=== PATIENT | male | born 1985 | race Caucasian/White ===

== ENCOUNTER 2018-12-25 04:46 | Day surgery (SDC) | payer OTHER | END 2018-12-25 12:30 | disposition home or self-care (01) | LOC: JASU-SURG 04:46 ==

== ENCOUNTER 2020-03-15 14:59 | Emergency (ER) | payer OTHER ==
[2020-03-15 15:04] VITALS: TEMP 98.3; BMI 36.5
--- NOTE | 2020-03-15 15:07 | PDOC ---
Rapid Medical Evaluation Chief Complaint: Pain, Acute Time Seen by Provider: 03/15/20 15:04 Medical Evaluation: Allergies Allergy/AdvReac Type Severity Reaction Status Date / Time No Known Allergies Allergy Verified 03/15/20 15:02 Vital Signs Temp Pulse Resp BP Pulse Ox 98.3 F 120 H 20 145/97 100 03/15/20 15:02 03/15/20 15:02 03/15/20 15:02 03/15/20 15:02 03/15/20 15:02 03/15/20 15:06 CC: rt flank, ruq pain x 3 days, no other complaints Exam: rt cva and ruq tenderness, tachy at 120, (states he just walked up the hill) Plan: labs, urine Discharge Disposition - Diagnosis Abdominal pain - Referrals - Patient Instructions - Post Discharge Activity
[2020-03-15] MEDS ORDERED: ONDANSETRON 4 MG/2 ML VIAL IVPUSH ONE (15:19)
[2020-03-15] MEDS ORDERED: KETOROLAC TROMETHAMINE 30 MG/1 ML VIAL IVPUSH ONE (15:19)
--- NOTE | 2020-03-15 15:28 | PDOC ---
History of Present Illness - General Chief Complaint: Pain, Acute Stated Complaint: BACK PAIN Time Seen by Provider: 03/15/20 15:04 History Source: Patient - History of Present Illness Timing/Duration: reports: constant Quality: reports: severe Abdominal Pain Onset Location: reports: RUQ, flank Past History - Medical History Allergies/Adverse Reactions: Allergies Allergy/AdvReac Type Severity Reaction Status Date / Time No Known Allergies Allergy Verified 03/15/20 15:02 Home Medications: Ambulatory Orders Hydrocodone/Acetaminophen [Hydrocodone-Acetamin 5-325 mg] 1 each PO Q6H #20 tablet MDD 4 12/25/18 Anemia: No Asthma: No Cancer: No Cardiac Disorders: No CVA: No COPD: No CHF: No Dementia: No Diabetes: No GI Disorders: No Disorders: No HTN: No Hypercholesterolemia: No Liver Disease: No Seizures: No Thyroid Disease: No Other medical history: DENIES - Immunization History Immunization Up to Date: Yes - Psycho-Social/Smoking History Smoking History: Never smoked - Substance Abuse Hx (Audit-C & DAST Scrn) How often the patient has a drink containing alcohol: Never Score: In Men: 4 or > Positive; In Women: 3 or > Positive: 0 Screen Result (Pos requires Nsg. Audit-10AR): Negative In the last yr the pt used illegal drug/Rx for NonMed reason: No Score: Yes response is considered Positive: 0 Screen Result (Positive result requires Nsg. DAST-10): Negative Review of Systems - Review of Systems Constitutional: No: Chills, Fever Respiratory: No: Cough, Shortness of Breath Cardiac (ROS): No: Chest Pain ABD/GI: Yes: Nausea. No: Blood Streaked Bowels, Constipated, Diarrhea, Rectal Bleeding, Vomiting, Tarry Stools : Yes: Flank Pain. No: Dysuria, Hematuria *Physical Exam - Vital Signs Last Vital Signs Temp Pulse Resp BP Pulse Ox 98.3 F 120 H 20 145/97 100 03/15/20 15:02 03/15/20 15:02 03/15/20 15:02 03/15/20 15:02 03/15/20 15:02 - Physical Exam General Appearance: Yes: Appropriately Dressed, Mild Distress HEENT: positive: Normal Voice Respiratory/Chest: positive: Lungs Clear, Normal Breath Sounds. negative: Respiratory Distress Cardiovascular: positive: Regular Rate, S1, S2 Gastrointestinal/Abdominal: positive: Normal Bowel Sounds, Tender (minimal ttp to RUQ, neg murpheys), Soft. negative: Distended, Guarding, Rebound Musculoskeletal: positive: CVA Tenderness (R) Integumentary: positive: Dry, Warm Neurologic: positive: Fully Oriented, Alert, Normal Mood/Affect ED Treatment Course - LABORATORY CBC & Chemistry Diagram: 03/15/20 16:00 03/15/20 16:00 - RADIOLOGY Radiology Studies Ordered: Category Date Time Status CXR [CHEST PA & LAT] [RAD] Stat Radiology 03/15/20 15:18 Ordered ABDOMEN US -LIMITED [US] Stat Ultrasound 03/15/20 15:18 Ordered KIDNEY / RENAL US [US] Stat Ultrasound 03/15/20 15:19 Ordered Medical Decision Making - Medical Decision Making 03/15/20 15:23 34 yo morbidly obesed male who denies any past medical history, here with persistent R upper/flank pain since yesterday, unable to describe, constant, 8 out of 10 and a/w nausea. No vomiting, dysuria, hematuria, fever, chills or change in bowel movements. Denies any cough, shortness of breath, chest pain or palpitations. No history of similar episode. No recent trauma. No personal history of gallstones or kidney stones but states his father might have had kidney stones. see exam R flank pain ? renal colic vs biliary, less likely pancreatitis, cardiac or pulm source Exam remarkable for HR 120 w/ R CVAT and ttp to RUQ -symptomatic control -labs -renal and RUQ sono -?CT 03/15/20 18:05 Labs unremarkable. Renal US normal. US neg for possible GB polyp, less likely stone, w/ no e/o demetrius but does show slightly dilated CBD to 0.7 cm. MRI/MRCP if clinically warranted. On reassessment, patient continues to complain of pain to his right upper back/flank but does not appear to be in any significant distress. Case discussed with Dr. Xavier who reviewed labs and images. Plan is to do non-contrast CT to definitively rule out stone. 03/15/20 19:02 Pt signed out to GARRICK Xavier pending CT read and rpt vitals Discharge - Discharge Information Problems reviewed: Yes Clinical Impression/Diagnosis: Right flank pain Cholelithiasis Qualifiers: Cholelithiasis location: gallbladder Cholecystitis presence: without cholecystitis Biliary obstruction: without biliary obstruction Qualified Code(s): K80.20 - Calculus of gallbladder without cholecystitis without obstruction Disposition: HOME - Follow up/Referral Referrals: Ramakrishna Catherine DO [Staff Physician] - Call tomorrow Usha Mccauley MD [Primary Care Provider] - - Patient Discharge Instructions Patient Printed Discharge Instructions: DI for Gallstones Additional Instructions: You may take Tylenol or ibuprofen for pain. It is important to cut fatty foods from your diet. Maintain a high-fiber diet drink lots of fluids. Follow-up with admitting coordinator as soon as possible. Return to the emergency room for any worsening symptoms including vomiting, fever, worsening abdominal pain - Post Discharge Activity Work/Back to School Note: Back to Work
[2020-03-15 16:05] LABS: BASO % 1.3 % (0-2.0); EOS % 3.1 % (0-4.5); HEMATOCRIT 46.2 % (35.4-49); LYMPH % 28.5 % (8-40); MCH 25.4 pg (25.7-33.7); MCHC 32.4 g/dl (32.0-35.9); MEAN CELL VOLUME 78.5 fl (80-96); MEAN PLT VOLUME 8.4 fl (7.5-11.1); MONO % 6.3 % (3.8-10.2); NEUT % 60.8 % (42.8-82.8); PLATELET COUNT 296 K/MM3 (134-434); RBC 5.88 M/mm3 (4.00-5.60); RDW 14.5 % (11.9-15.9); WHITE BLOOD COUNT 9.7 K/mm3 (4.0-10.0)
[2020-03-15] MEDS ORDERED: KETOROLAC TROMETHAMINE 30 MG/1 ML VIAL ONE (16:17)
[2020-03-15 16:36] LABS: ALBUMIN 4.1 g/dl (3.4-5.0); BILIRUBIN,TOTAL 0.4 mg/dL (0.2-1); BLOOD UREA NITROGEN 13.9 mg/dL (7-18); CALCIUM 9.7 mg/dL (8.5-10.1); CREATININE 0.9 mg/dL (0.55-1.3); POTASSIUM 4.2 mmol/L (3.5-5.1); TOT PROT 7.7 g/dl (6.4-8.2)
[2020-03-15 17:13] LABS: URINE APPEARANCE CLEAR; URINE BILIRUBIN NEGATIVE (NEGATIVE); URINE COLOR YELLOW; URINE GLUCOSE (UA) NEGATIVE (NEGATIVE); URINE KETONE TRACE (NEGATIVE); URINE LEUK ESTERASE NEGATIVE (NEGATIVE); URINE NITRITE NEGATIVE (NEGATIVE); URINE PROTEIN TRACE (NEGATIVE); URINE UROBILINOGEN 0.2 mg/dL (0.2-1.0)
[2020-03-15] MEDS ORDERED: ACETAMINOPHEN 1000 MG/100 ML VIAL (NON FORMULARY) IVPB ONE (18:21)
[2020-03-15] MEDS ORDERED: ACETAMINOPHEN INJECTION 100 ML IVPB ONE (18:49)
--- NOTE | 2020-03-15 19:28 | PDOC ---
*Physical Exam - Vital Signs Last Vital Signs Temp Pulse Resp BP Pulse Ox 98.3 F 120 H 20 145/97 100 03/15/20 15:02 03/15/20 15:02 03/15/20 15:02 03/15/20 15:02 03/15/20 15:02 - Physical Exam General Appearance: Yes: Appropriately Dressed Respiratory/Chest: positive: Lungs Clear, Normal Breath Sounds Gastrointestinal/Abdominal: positive: Normal Bowel Sounds, Soft. negative: Tender Musculoskeletal: positive: Normal Inspection. negative: CVA Tenderness (R) Extremity: positive: Normal Capillary Refill, Normal Inspection Integumentary: positive: Normal Color, Dry, Warm Neurologic: positive: Fully Oriented, Alert, Normal Mood/Affect ED Treatment Course - LABORATORY CBC & Chemistry Diagram: 03/15/20 16:00 03/15/20 16:00 - ADDITIONAL ORDERS Additional order review: Laboratory Results 03/15/20 03/15/20 16:56 16:00 Sodium 140 Potassium 4.2 Chloride 107 Carbon Dioxide 28 Anion Gap 5 L BUN 13.9 Creatinine 0.9 Est GFR (CKD-EPI)AfAm 126.90 Est GFR (CKD-EPI)NonAf 109.49 Random Glucose 84 Calcium 9.7 Total Bilirubin 0.4 AST 16 ALT 34 Alkaline Phosphatase 88 Total Protein 7.7 Albumin 4.1 Lipase 80 Urine Color Yellow Urine Appearance Clear Urine pH 5.0 Ur Specific Morgan 1.031 Urine Protein Trace Urine Glucose (UA) Negative Urine Ketones Trace H Urine Blood Negative Urine Nitrite Negative Urine Bilirubin Negative Urine Urobilinogen 0.2 Ur Leukocyte Esterase Negative 03/15/20 16:00 RBC 5.88 H MCV 78.5 L MCHC 32.4 RDW 14.5 MPV 8.4 Neutrophils % 60.8 Lymphocytes % 28.5 Monocytes % 6.3 Eosinophils % 3.1 Basophils % 1.3 - Medications Given in the ED: ED Medications Discontinued Medications Generic Name Dose Route Start Last Admin Trade Name Freq PRN Reason Stop Dose Admin Acetaminophen 1,000 mg 03/15/20 18:21 03/15/20 18:56 Ofirmev Injection - IVPB 03/15/20 18:22 1,000 mg ONCE ONE Administration Ketorolac Tromethamine 30 mg 03/15/20 15:19 03/15/20 16:34 Toradol Injection - IVPUSH 03/15/20 15:20 30 mg ONCE ONE Administration Ondansetron HCl 4 mg 03/15/20 15:19 03/15/20 16:34 Zofran Injection IVPUSH 03/15/20 15:20 4 mg ONCE ONE Administration Medical Decision Making - Medical Decision Making Cholethiases P: CT cholethiases Discharge - Discharge Information Problems reviewed: Yes Clinical Impression/Diagnosis: Right flank pain Cholelithiasis Qualifiers: Cholelithiasis location: gallbladder Cholecystitis presence: without cholecystitis Biliary obstruction: without biliary obstruction Qualified Code(s): K80.20 - Calculus of gallbladder without cholecystitis without obstruction Disposition: HOME - Follow up/Referral Referrals: Usha Mccauley MD [Primary Care Provider] - Ramakrishna Catherine DO [Staff Physician] - Call tomorrow - Patient Discharge Instructions Patient Printed Discharge Instructions: DI for Gallstones Additional Instructions: You may take Tylenol or ibuprofen for pain. It is important to cut fatty foods from your diet. Maintain a high-fiber diet drink lots of fluids. Follow-up with employer relations representative as soon as possible. Return to the emergency room for any worsening symptoms including vomiting, fever, worsening abdominal pain - Post Discharge Activity Work/Back to School Note: Back to Work
[2020-03-15 20:07] VITALS: BP 127/85; PULSE 89
== END 2020-03-15 21:07 | disposition home or self-care (01) ==
LOC: JER 14:59
PROC: 3E0333Z Introduction of Anti-inflammatory into Peripheral Vein, Percutaneous Approach (ICD-10-PCS; principal; 2020-03-15)
PROC: 3E033GC Introduction of Other Therapeutic Substance into Peripheral Vein, Percutaneous Approach (ICD-10-PCS; 2020-03-15)
DX: R10.9 Unspecified abdominal pain (principal); K80.20 Calculus of gallbladder without cholecystitis without obstruction
CPT/HCPCS: 36415; 71046-TC-FY; 74176-TC; 76705-TC; 76775-TC; 80053; 81003; 83690; 85025; 87086; 99285-25; J0131

== ENCOUNTER 2021-03-07 12:32 | Observation (INO) | payer OTHER ==
[2021-03-07 13:02] VITALS: BMI 38.0
[2021-03-07] MEDS ORDERED: ONDANSETRON 4 MG/2 ML VIAL IVPUSH ONE (13:15)
[2021-03-07 13:23] LABS: HEMATOCRIT 42.1 % (35.4-49); HEMOGLOBIN 13.6 GM/dL (11.7-16.9); MCH 24.7 pg (25.7-33.7); MCHC 32.3 g/dl (32.0-35.9); MEAN CELL VOLUME 76.5 fl (80-96); MEAN PLT VOLUME 7.9 fl (7.5-11.1); PLATELET COUNT 275 10^3/uL (134-434); RDW 14.9 % (11.9-15.9); WHITE BLOOD COUNT 11.8 K/mm3 (4.0-10.0)
[2021-03-07 13:47] LABS: CHLORIDE 106 mmol/L (98-107); SODIUM 137 mmol/L (136-145)
[2021-03-07 13:50] LABS: ALBUMIN 3.5 g/dl (3.4-5.0); CO2 24 mmol/L (21-32); GLUCOSE,RANDOM 107 mg/dL (74-106)
[2021-03-07 13:51] LABS: BLOOD UREA NITROGEN 13.1 mg/dL (7-18)
[2021-03-07 13:53] LABS: CREATININE 0.8 mg/dL (0.55-1.3); SGOT/AST 47 U/L (15-37); SGPT/ALT 40 U/L (13-61)
[2021-03-07 13:55] LABS: BILIRUBIN,TOTAL 0.4 mg/dL (0.2-1); TOT PROT 7.3 g/dl (6.4-8.2)
[2021-03-07 13:56] LABS: ALK PHOS 79 U/L (45-117)
[2021-03-07] MEDS ORDERED: ONDANSETRON 4 MG/2 ML VIAL ONE (13:59)
[2021-03-07 14:12] LABS: INR 0.95 (0.83-1.09); PROTHROMBIN TIME (PATIENT) 11.7 SEC (9.7-13.0)
[2021-03-07] MEDS ORDERED: ACETAMINOPHEN 1000 MG/100 ML VIAL (NON FORMULARY) IVPB ONE (14:31)
[2021-03-07] MEDS ORDERED: ACETAMINOPHEN INJECTION 100 ML IVPB ONE (14:43)
[2021-03-07 15:18] LABS: N-TERMINAL BNP 235.3 pg/ml (5-125)
[2021-03-07 15:19] LABS: ANION GAP 7 MMOL/L (8-16)
[2021-03-07 16:18] LABS: ALBUMIN 2.9 g/dl (3.4-5.0); BLOOD UREA NITROGEN 10.8 mg/dL (7-18)
[2021-03-07 16:21] LABS: CREATININE 0.6 mg/dL (0.55-1.3)
[2021-03-07 16:23] LABS: BILIRUBIN,TOTAL 0.2 mg/dL (0.2-1); TOT PROT 5.6 g/dl (6.4-8.2)
[2021-03-07 16:27] LABS: CALCIUM 7.1 mg/dL (8.5-10.1)
[2021-03-07] MEDS ORDERED: ASPIRIN 81 MG CHEWABLE TABLETS PO ONE (17:32)
[2021-03-07] MEDS ORDERED: POTASSIUM CHLORIDE TABS 20 MEQ TABLET.ER (FP) PO ONE ×2 (17:49→18:12)
[2021-03-07] MEDS ORDERED: ASPIRIN 81 MG CHEWABLE TABLETS ONE ×2 (18:12→18:14)
[2021-03-07] MEDS ORDERED: ACETAMINOPHEN 325 MG TABLET (FP) PO PRN (22:25)
[2021-03-08] MEDS ORDERED: ENOXAPARIN NA (PORCINE) 40 MG/0.4 ML DISP.SYRIN SQ ONE (03:22)
[2021-03-08] MEDS: ENOXAPARIN NA (PORCINE) 40 MG/0.4 ML DISP.SYRIN SQ SCH ×3 (03:25→10:01)
[2021-03-08 07:40] LABS: BASO % 0.9 % (0-2.0); EOS % 2.9 % (0-4.5); HEMATOCRIT 43.8 % (35.4-49); HEMOGLOBIN 14.2 GM/dL (11.7-16.9); LYMPH % 16.8 % (8-40); MCH 25.2 pg (25.7-33.7); MCHC 32.5 g/dl (32.0-35.9); MEAN CELL VOLUME 77.5 fl (80-96); MEAN PLT VOLUME 8.8 fl (7.5-11.1); MONO % 4.9 % (3.8-10.2); NEUT % 74.5 % (42.8-82.8); PLATELET COUNT 288 10^3/uL (134-434); RBC 5.65 M/mm3 (4.00-5.60); RDW 14.7 % (11.9-15.9); WHITE BLOOD COUNT 11.8 K/mm3 (4.0-10.0)
[2021-03-08 08:06] LABS: CHLORIDE 106 mmol/L (98-107); SODIUM 138 mmol/L (136-145)
[2021-03-08 08:11] LABS: ANION GAP 7 MMOL/L (8-16); BLOOD UREA NITROGEN 14.8 mg/dL (7-18); CO2 25 mmol/L (21-32); GLUCOSE,RANDOM 93 mg/dL (74-106); MAGNESIUM 2.2 mg/dL (1.8-2.4)
[2021-03-08 08:14] LABS: CREATININE 0.9 mg/dL (0.55-1.3)
[2021-03-08 08:34] LABS: CALCIUM 8.5 mg/dL (8.5-10.1)
[2021-03-08] MEDS: CARVEDILOL 3.125 MG TABLET (FP) PO SCH ×2 (10:01→21:16)
[2021-03-08] MEDS: ASPIRIN 81 MG CHEWABLE TABLETS PO SCH (10:01)
[2021-03-08 14:00] LABS: CHOLESTEROL 188 mg/dL (50-200); TRIGLYCERIDES 126 mg/dL (0-150)
[2021-03-08 14:01] LABS: LDL CHOLESTEROL (ONLY SJRH) 117 mg/dL (5-100)
[2021-03-08 14:03] LABS: HDL CHOLESTEROL 38 mg/dL (40-60)
[2021-03-08] MEDS ORDERED: POLYETHYLENE GLYCOL (HEALTHYLAX) 3350 17 GM PACKET PO PRN (19:21)
[2021-03-09 07:25] LABS: CHOLESTEROL 189 mg/dL (50-200); TRIGLYCERIDES 98 mg/dL (0-150)
[2021-03-09 07:26] LABS: LDL CHOLESTEROL (ONLY SJRH) 127 mg/dL (5-100)
[2021-03-09 07:29] LABS: HDL CHOLESTEROL 37 mg/dL (40-60)
[2021-03-09] MEDS: ASPIRIN 81 MG CHEWABLE TABLETS PO SCH (09:24)
[2021-03-09] MEDS: CARVEDILOL 3.125 MG TABLET (FP) PO SCH (09:24)
[2021-03-09] MEDS: ENOXAPARIN NA (PORCINE) 40 MG/0.4 ML DISP.SYRIN SQ SCH (09:25)
[2021-03-09 11:28] LABS: BASO % 0.7 % (0-2.0); EOS % 3.9 % (0-4.5); HEMATOCRIT 45.1 % (35.4-49); HEMOGLOBIN 14.8 GM/dL (11.7-16.9); LYMPH % 23.2 % (8-40); MCH 25.4 pg (25.7-33.7); MCHC 32.7 g/dl (32.0-35.9); MEAN CELL VOLUME 77.5 fl (80-96); MEAN PLT VOLUME 9.5 fl (7.5-11.1); NEUT % 66.2 % (42.8-82.8); PLATELET COUNT 293 10^3/uL (134-434); RBC 5.82 M/mm3 (4.00-5.60); RDW 14.7 % (11.9-15.9); WHITE BLOOD COUNT 9.2 K/mm3 (4.0-10.0)
[2021-03-09] MEDS ORDERED: CARVEDILOL 3.125 MG TABLET (FP) PO ONE (13:30)
[2021-03-09] MEDS ORDERED: ROSUVASTATIN CA 10 MG TABLET (FP) PO SCH (22:00)
[2021-03-09] MEDS: SACUBITRIL/VALSARTAN 24 MG-26 MG TABLET PO SCH (22:18)
[2021-03-09] MEDS: CARVEDILOL 6.25 MG TABLET (FP) PO SCH (22:18)
[2021-03-10] MEDS: CARVEDILOL 6.25 MG TABLET (FP) PO SCH (09:23)
[2021-03-10] MEDS: ASPIRIN 81 MG CHEWABLE TABLETS PO SCH (09:23)
[2021-03-10] MEDS ORDERED: CARVEDILOL 12.5 MG TABLET (FP) PO SCH (09:30)
[2021-03-10] MEDS: SACUBITRIL/VALSARTAN 24 MG-26 MG TABLET PO SCH (09:38)
[2021-03-10] MEDS: ENOXAPARIN NA (PORCINE) 40 MG/0.4 ML DISP.SYRIN SQ SCH (09:40)
[2021-03-10 12:51] VITALS: BP 135/98; PULSE 107; TEMP 98.4
== END 2021-03-10 12:55 | disposition home or self-care (01) ==
LOC: JER 12:32 → JERBED 20:13 → UNDOADMOB 20:13 → INTOOBSV 20:13 → OBSVTOIN 20:13 → JERBED 03-08 04:08 → J4W 03-08 04:08 → JERBED 03-08 08:35
PROVIDERS: ADMIT Internal Medicine; ATTEND Internal Medicine
DX: I11.9 Hypertensive heart disease without heart failure (principal); I43 Cardiomyopathy in diseases classified elsewhere; I44.7 Left bundle-branch block, unspecified; R06.02 Shortness of breath; E66.9 Obesity, unspecified; Z68.38 Body mass index [BMI] 38.0-38.9, adult; R07.89 Other chest pain; R07.9 Chest pain, unspecified
CPT/HCPCS: 36415; 71045-TC-FY; 71275-TC; 80048; 80053; 80061; 82550; 82553; 83735; 83880; 84443; 84484; 85025; 85027; 85379; 85610; 85730; 93005; 93010; 93306-TC; 93970-TC; 99285-25; C9803; G0378; J0131; Q9967; U0003; U0005

== ENCOUNTER 2021-07-13 11:49 | Emergency (ER) | payer OTHER ==
[2021-07-13 12:24] VITALS: BP 119/78; PULSE 111; TEMP 98.4; BMI 45.6
[2021-07-15 02:06] LABS: SARS-CoV-2 NAA Detected (Not Detected)
== END 2021-07-13 13:40 | disposition home or self-care (01) ==
LOC: JER 11:49
DX: R51.9 Headache, unspecified (principal); J06.9 Acute upper respiratory infection, unspecified; M79.10 Myalgia, unspecified site
CPT/HCPCS: 87070; 87804; 99283-25; C9803-CS; U0003; U0005

== ENCOUNTER 2021-07-17 13:10 | Emergency (ER) | payer OTHER ==
[2021-07-17 13:30] VITALS: TEMP 97.8; BMI 44.6
[2021-07-17] MEDS ORDERED: CASIRIVIMAB/IMDEVIMAB 10 ML in SODIUM CHLORIDE 100 ML IVPB ONE (14:03)
[2021-07-17 16:34] VITALS: BP 112/71; PULSE 83
== END 2021-07-17 18:18 | disposition home or self-care (01) ==
LOC: JER 13:10 → JCOVINFU 13:10
PROC: 3E033GC Introduction of Other Therapeutic Substance into Peripheral Vein, Percutaneous Approach (ICD-10-PCS; principal; 2021-07-17)
DX: U07.1 COVID-19 (principal)
CPT/HCPCS: 99284-25; Q0240

== ENCOUNTER 2021-08-09 12:37 | Emergency (ER) | payer OTHER ==
[2021-08-09 13:08] VITALS: BMI 44.8
[2021-08-09] MEDS ORDERED: ACETAMINOPHEN 1000 MG/100 ML BAG IVPB ONE (13:48)
[2021-08-09] MEDS ORDERED: ACETAMINOPHEN 500 MG TABLET (FP) PO ONE (14:43)
[2021-08-09] MEDS ORDERED: ACETAMINOPHEN 500 MG TABLET (FP) ONE (14:48)
[2021-08-09 15:10] LABS: BASO % 0.6 % (0-2.0); EOS % 0.2 % (0-4.5); HEMATOCRIT 44.4 % (35.4-49); HEMOGLOBIN 14.6 GM/dL (11.7-16.9); LYMPH % 23.4 % (8-40); MCH 25.1 pg (25.7-33.7); MCHC 32.9 g/dl (32.0-35.9); MEAN CELL VOLUME 76.2 fl (80-96); MEAN PLT VOLUME 8.6 fl (7.5-11.1); MONO % 11.3 % (3.8-10.2); NEUT % 64.5 % (42.8-82.8); PLATELET COUNT 158 10^3/uL (134-434); RBC 5.82 M/mm3 (4.00-5.60); WHITE BLOOD COUNT 3.5 K/mm3 (4.0-10.0)
[2021-08-09 15:26] LABS: CHLORIDE 104 mmol/L (98-107); SODIUM 137 mmol/L (136-145)
[2021-08-09 15:28] LABS: ALBUMIN 3.5 g/dl (3.4-5.0); ANION GAP 8 MMOL/L (8-16); BLOOD UREA NITROGEN 14.9 mg/dL (7-18); CALCIUM 9.1 mg/dL (8.5-10.1); CO2 25 mmol/L (21-32); GLUCOSE,RANDOM 98 mg/dL (74-106)
[2021-08-09 15:31] LABS: SGPT/ALT 52 U/L (13-61)
[2021-08-09 15:32] LABS: CREATININE 0.9 mg/dL (0.55-1.3); SGOT/AST 30 U/L (15-37)
[2021-08-09 15:33] LABS: BILIRUBIN,TOTAL 0.6 mg/dL (0.2-1)
[2021-08-09 15:34] LABS: ALK PHOS 72 U/L (45-117)
[2021-08-09 16:42] VITALS: BP 108/60; PULSE 63; TEMP 98.1
== END 2021-08-09 16:05 | disposition home or self-care (01) ==
LOC: JER 12:37
PROC: 3E033GC Introduction of Other Therapeutic Substance into Peripheral Vein, Percutaneous Approach (ICD-10-PCS; principal; 2021-08-09)
DX: B34.9 Viral infection, unspecified (principal)
CPT/HCPCS: 36415; 71046-TC-FY; 80053; 84484; 85025; 87804; 93005; 93010; 99285-25; C9803; U0003; U0005

== ENCOUNTER 2021-09-22 13:34 | Observation (INO) | payer OTHER ==
[2021-09-22 13:38] VITALS: BMI 43.5
[2021-09-22] MEDS ORDERED: ASPIRIN 325 MG ENTERIC COATED TABLET (FP) PO ONE (15:05)
[2021-09-22] MEDS ORDERED: ASPIRIN 325 MG TABLET ONE (15:19)
[2021-09-22] MEDS ORDERED: FUROSEMIDE 40 MG/4 ML INJECTABLE VIAL IVPUSH ONE (16:20)
[2021-09-22 16:21] LABS: BASO % 0.8 % (0-2.0); EOS % 4.2 % (0-4.5); HEMATOCRIT 43.3 % (35.4-49); LYMPH % 33.5 % (8-40); MCH 25.2 pg (25.7-33.7); MCHC 32.5 g/dl (32.0-35.9); MEAN CELL VOLUME 77.7 fl (80-96); MONO % 7.4 % (3.8-10.2); NEUT % 54.1 % (42.8-82.8); PLATELET COUNT 274 10^3/uL (134-434); RBC 5.57 M/mm3 (4.00-5.60); RDW 15.7 % (11.9-15.9)
[2021-09-22 16:33] LABS: INR 1.03 (0.83-1.09); PROTHROMBIN TIME (PATIENT) 11.8 SEC (9.7-13.0)
[2021-09-22] MEDS ORDERED: FUROSEMIDE 40 MG/4 ML INJECTABLE VIAL ONE ×2 (16:39→19:31)
[2021-09-22 16:45] LABS: CALCIUM 8.7 mg/dL (8.5-10.1)
[2021-09-22 16:46] LABS: ALBUMIN 3.7 g/dl (3.4-5.0)
[2021-09-22 16:49] LABS: CREATININE 0.8 mg/dL (0.55-1.3)
[2021-09-22 16:51] LABS: BILIRUBIN,TOTAL 0.4 mg/dL (0.2-1)
[2021-09-22 16:54] LABS: N-TERMINAL BNP 40.9 pg/ml (5-125)
[2021-09-22 17:08] LABS: URINE APPEARANCE CLEAR; URINE COLOR YELLOW; URINE GLUCOSE (UA) 500 mg/dl (NEGATIVE)
[2021-09-22 17:09] LABS: URINE BILIRUBIN NEGATIVE (NEGATIVE); URINE KETONE TRACE (NEGATIVE); URINE LEUK ESTERASE NEGATIVE (NEGATIVE); URINE NITRITE NEGATIVE (NEGATIVE); URINE PROTEIN NEGATIVE (NEGATIVE); URINE UROBILINOGEN 0.2 mg/dL (0.2-1.0)
[2021-09-22] MEDS ORDERED: POLYETHYLENE GLYCOL (HEALTHYLAX) 3350 17 GM PACKET PO PRN (19:49)
[2021-09-22] MEDS ORDERED: ACETAMINOPHEN 325 MG TABLET (FP) PO PRN (19:49)
[2021-09-22] MEDS ORDERED: CARVEDILOL 25 MG TABLET (FP) ONE (21:37)
[2021-09-22] MEDS ORDERED: SACUBITRIL/VALSARTAN 24 MG-26 MG TABLET PO SCH (22:00)
[2021-09-22] MEDS ORDERED: ROSUVASTATIN CA 10 MG TABLET PO SCH (22:00)
[2021-09-22] MEDS: CARVEDILOL 25 MG TABLET (FP) PO SCH (22:59)
[2021-09-22] MEDS ORDERED: SACUBITRIL/VALSARTAN 24 MG-26 MG TABLET PO ONE (23:24)
[2021-09-23 07:13] VITALS: TEMP 98
[2021-09-23 08:03] LABS: BASO % 0.6 % (0-2.0); EOS % 4.4 % (0-4.5); HEMATOCRIT 43.7 % (35.4-49); HEMOGLOBIN 14.5 GM/dL (11.7-16.9); LYMPH % 25.3 % (8-40); MCH 25.6 pg (25.7-33.7); MCHC 33.1 g/dl (32.0-35.9); MEAN CELL VOLUME 77.3 fl (80-96); MEAN PLT VOLUME 7.7 fl (7.5-11.1); MONO % 7.2 % (3.8-10.2); NEUT % 62.5 % (42.8-82.8); PLATELET COUNT 243 10^3/uL (134-434); RBC 5.65 M/mm3 (4.00-5.60); RDW 15.4 % (11.9-15.9); WHITE BLOOD COUNT 6.2 K/mm3 (4.0-10.0)
[2021-09-23 08:13] LABS: CALCIUM 8.5 mg/dL (8.5-10.1)
[2021-09-23 08:14] LABS: BLOOD UREA NITROGEN 15.7 mg/dL (7-18); MAGNESIUM 2.1 mg/dL (1.8-2.4)
[2021-09-23 08:17] LABS: CREATININE 0.8 mg/dL (0.55-1.3)
[2021-09-23] MEDS ORDERED: ASPIRIN 81 MG CHEWABLE TABLETS ONE (09:20)
[2021-09-23] MEDS ORDERED: CARVEDILOL 25 MG TABLET (FP) ONE (09:20)
[2021-09-23] MEDS: CARVEDILOL 25 MG TABLET (FP) PO SCH (09:40)
[2021-09-23] MEDS ORDERED: SACUBITRIL/VALSARTAN 24 MG-26 MG TABLET PO SCH (10:00)
[2021-09-23] MEDS ORDERED: ASPIRIN 81 MG CHEWABLE TABLETS PO SCH (10:00)
[2021-09-23] MEDS ORDERED: PATIENT'S OWN MEDICATION (NON-FORMULARY) (Dapagliflozin Propanediol [Farxiga] 10 MG Tablet PO SCH (10:00)
[2021-09-23 14:20] VITALS: BP 110/66; PULSE 70
[2021-09-23] MEDS ORDERED: SACUBITRIL/VALSARTAN 24 MG-26 MG TABLET PO ONE (22:46)
== END 2021-09-23 14:20 | disposition home or self-care (01) ==
LOC: JER 13:34 → INTOOBSV 18:08 → JERBED 18:08
PROVIDERS: ADMIT Hospitalist; ATTEND Internal Medicine
PROC: 3E033GC Introduction of Other Therapeutic Substance into Peripheral Vein, Percutaneous Approach (ICD-10-PCS; principal; 2021-09-22)
DX: I44.7 Left bundle-branch block, unspecified (principal); R00.0 Tachycardia, unspecified; I42.0 Dilated cardiomyopathy; E66.01 Morbid (severe) obesity due to excess calories; Z68.41 Body mass index [BMI] 40.0-44.9, adult; J45.909 Unspecified asthma, uncomplicated; R06.02 Shortness of breath; R07.9 Chest pain, unspecified; R94.31 Abnormal electrocardiogram [ECG] [EKG]; Z86.16 Personal history of COVID-19
CPT/HCPCS: 36415; 71046-TC-FY; 71275-TC; 80048; 80053; 81003; 83735; 83880; 84484; 85025; 85610; 85730; 87086; 93005; 93010; 96374; 99285-25; C9803; G0378; Q9967; U0003; U0005

== ENCOUNTER 2022-07-05 15:03 | Observation (INO) | payer OTHER ==
[2022-07-05 15:13] VITALS: BMI 44.2
[2022-07-05] MEDS ORDERED: ASPIRIN 325 MG TABLET PO ONE (17:23)
[2022-07-05] MEDS ORDERED: ASPIRIN 325 MG TABLET ONE (19:15)
[2022-07-05 19:28] LABS: BASO % 0.7 % (0-2.0); EOS % 3.1 % (0-4.5); HEMATOCRIT 47.2 % (35.4-49); HEMOGLOBIN 14.8 GM/dL (11.7-16.9); LYMPH % 30.6 % (8-40); MCH 24.7 pg (25.7-33.7); MCHC 31.4 g/dl (32.0-35.9); MEAN CELL VOLUME 78.8 fl (80-96); MEAN PLT VOLUME 7.5 fl (7.5-11.1); NEUT % 56.6 % (42.8-82.8); PLATELET COUNT 305 10^3/uL (134-434); RBC 5.99 M/mm3 (4.00-5.60); RDW 15.1 % (11.9-15.9); WHITE BLOOD COUNT 9.4 K/mm3 (4.0-10.0)
[2022-07-05 19:34] LABS: INR 1.12 (0.83-1.09); PROTHROMBIN TIME (PATIENT) 12.9 SEC (9.7-13.0)
[2022-07-05 19:49] LABS: ALBUMIN 3.7 g/dl (3.4-5.0); BLOOD UREA NITROGEN 15.7 mg/dL (7-18); CALCIUM 9.2 mg/dL (8.5-10.1)
[2022-07-05 19:52] LABS: CREATININE 0.8 mg/dL (0.55-1.3)
[2022-07-05 19:54] LABS: BILIRUBIN,TOTAL 0.4 mg/dL (0.2-1); TOT PROT 7.2 g/dl (6.4-8.2)
[2022-07-05 20:46] LABS: N-TERMINAL BNP 17.9 pg/ml (5-125)
[2022-07-05] MEDS ORDERED: CARVEDILOL 25 MG TABLET (FP) ONE (22:59)
[2022-07-05] MEDS: CARVEDILOL 12.5 MG TABLET (FP) PO SCH (23:07)
[2022-07-06] MEDS: SACUBITRIL/VALSARTAN 49 MG-51 MG TABLET PO SCH ×2 (00:58→10:54)
[2022-07-06 09:38] LABS: BASO % 0.5 % (0-2.0); EOS % 3.2 % (0-4.5); HEMATOCRIT 47.2 % (35.4-49); HEMOGLOBIN 14.7 GM/dL (11.7-16.9); LYMPH % 23.9 % (8-40); MCH 24.7 pg (25.7-33.7); MCHC 31.1 g/dl (32.0-35.9); MEAN CELL VOLUME 79.2 fl (80-96); MEAN PLT VOLUME 7.7 fl (7.5-11.1); MONO % 7.1 % (3.8-10.2); NEUT % 65.3 % (42.8-82.8); PLATELET COUNT 268 10^3/uL (134-434); RBC 5.96 M/mm3 (4.00-5.60); RDW 14.9 % (11.9-15.9); WHITE BLOOD COUNT 7.5 K/mm3 (4.0-10.0)
[2022-07-06] MEDS ORDERED: ASPIRIN 81 MG CHEWABLE TABLETS PO SCH (10:00)
[2022-07-06] MEDS ORDERED: PATIENT'S OWN MEDICATION (NON-FORMULARY) (Dapagliflozin Propanediol 10 MG Tablet) PO SCH (10:00)
[2022-07-06 10:05] LABS: MAGNESIUM 2.2 mg/dL (1.8-2.4)
[2022-07-06 10:07] LABS: ALBUMIN 3.5 g/dl (3.4-5.0)
[2022-07-06 10:08] LABS: CREATININE 0.8 mg/dL (0.55-1.3)
[2022-07-06] MEDS ORDERED: ASPIRIN 81 MG CHEWABLE TABLETS ONE (10:08)
[2022-07-06] MEDS ORDERED: CARVEDILOL 25 MG TABLET (FP) ONE (10:08)
[2022-07-06 10:09] LABS: BILIRUBIN,TOTAL 0.7 mg/dL (0.2-1); BLOOD UREA NITROGEN 17.1 mg/dL (7-18); TOT PROT 6.9 g/dl (6.4-8.2)
[2022-07-06] MEDS: CARVEDILOL 12.5 MG TABLET (FP) PO SCH (10:54)
[2022-07-06 14:15] VITALS: BP 103/57; PULSE 77; RESP 14; TEMP 98
[2022-07-06] MEDS ORDERED: ROSUVASTATIN CA 10 MG TABLET PO SCH (22:00)
== END 2022-07-06 15:00 | disposition home or self-care (01) ==
LOC: JER 15:03 → JERBED 20:01
PROVIDERS: ADMIT Internal Medicine; ATTEND Internal Medicine
DX: I50.9 Heart failure, unspecified (principal); I42.9 Cardiomyopathy, unspecified; R07.9 Chest pain, unspecified; R07.89 Other chest pain; I44.7 Left bundle-branch block, unspecified; R06.02 Shortness of breath; E66.01 Morbid (severe) obesity due to excess calories; Z68.41 Body mass index [BMI] 40.0-44.9, adult; R00.0 Tachycardia, unspecified; R94.31 Abnormal electrocardiogram [ECG] [EKG]; G47.33 Obstructive sleep apnea (adult) (pediatric); Z99.81 Dependence on supplemental oxygen; U07.1 COVID-19
CPT/HCPCS: 0241U-QW; 36415; 71046-TC-FY; 80053; 80061; 83735; 83880; 84443; 84484; 85025; 85610; 93005; 93010; 99285-25; G0378

== ENCOUNTER 2024-01-26 11:36 | Emergency (ER) | payer OTHER ==
[2024-01-26 11:43] VITALS: BMI 44.3
[2024-01-26 12:58] LABS: BASO % 0.7 % (0-2.0); EOS % 3.7 % (0-4.5); HEMATOCRIT 43.5 % (35.4-49); HEMOGLOBIN 14.2 GM/dL (11.7-16.9); MCH 25.2 pg (25.7-33.7); MCHC 32.6 g/dl (32.0-35.9); MEAN CELL VOLUME 77.4 fl (80-96); MEAN PLT VOLUME 7.6 fl (7.5-11.1); MONO % 6.8 % (3.8-10.2); NEUT % 63.8 % (42.8-82.8); PLATELET COUNT 291 10^3/uL (134-434); RBC 5.62 M/mm3 (4.00-5.60); RDW 14.8 % (11.9-15.9)
[2024-01-26 13:07] LABS: INR 0.98 (0.83-1.09); PROTHROMBIN TIME (PATIENT) 11.1 SEC (9.7-13.0)
[2024-01-26 13:21] LABS: POTASSIUM 3.9 mmol/L (3.5-5.1)
[2024-01-26 13:24] LABS: ALBUMIN 3.5 g/dl (3.4-5.0); CALCIUM 8.8 mg/dL (8.5-10.1)
[2024-01-26 13:27] LABS: CREATININE 0.8 mg/dL (0.55-1.3)
[2024-01-26 13:29] LABS: BILIRUBIN,TOTAL 0.3 mg/dL (0.2-1); TOT PROT 6.8 g/dl (6.4-8.2)
[2024-01-26 13:32] LABS: N-TERMINAL BNP 13.2 pg/ml (5-125)
[2024-01-26 14:39] VITALS: TEMP 98
[2024-01-26 16:58] VITALS: BP 120/73; PULSE 81; RESP 20
== END 2024-01-26 17:00 | disposition home or self-care (01) ==
LOC: JER 11:36
DX: R07.2 Precordial pain (principal); R61 Generalized hyperhidrosis; R42 Dizziness and giddiness
CPT/HCPCS: 36415; 71045-TC-FY; 80053; 83880; 84484; 85025; 85610; 93005; 93010; 99285-25